=== PATIENT | male | born 1945 | race Two or more races ===

== ENCOUNTER 2021-02-28 16:09 | Emergency (ER) | payer OTHER ==
[~2021-02-28] VITALS: Ht 172.7 cm; Wt 72.6 kg
[2021-02-28] MEDS ORDERED: TDAP DIPH,PERTUSS,TET VAC/PF 0.5 ML DISP.SYRIN IM ONE ×2 (16:30→16:59)
--- NOTE | 2021-02-28 16:30 | NUR ---
PATIENT WAS MSE BY DR KEATING IN ROOM 03A.
[2021-02-28] MEDS ORDERED: MORPHINE SULFATE 2 MG/1 ML DISP.SYRIN ONE (16:59)
[2021-02-28] MEDS ORDERED: KETOROLAC TROMETHAMINE 30 MG INJ ONE (16:59)
[2021-02-28] MEDS ORDERED: KETOROLAC TROMETHAMINE 30 MG INJ IM ONE (17:00)
[2021-02-28] MEDS ORDERED: MORPHINE SULFATE 2 MG/1 ML DISP.SYRIN IM ONE (17:00)
[2021-02-28] MEDS ORDERED: HYDR-4209 PO (17:40)
[2021-02-28] MEDS ORDERED: IBUP-1955 PO (17:40)
--- NOTE | 2021-02-28 18:05 | NUR ---
Patient discharged to home in stable condition. Written and verbal after care instructions given. Patient and verbalizes understanding of instructions. Stressed follow up or return to ER for worsening s/s.
[2021-02-28 18:10] VITALS: BP 134/77
== END 2021-02-28 18:05 | disposition home or self-care (01) ==
LOC: ER 16:12
DX: S52.001A Unspecified fracture of upper end of right ulna, initial encounter for closed fracture (principal); S00.511A Abrasion of lip, initial encounter; W01.0XXA Fall on same level from slipping, tripping and stumbling without subsequent striking against object, initial encounter; Y93.01 Activity, walking, marching and hiking; Y92.481 Parking lot as the place of occurrence of the external cause
CPT/HCPCS: 29105; 73080 ×2; 96372 ×2; 99284; J1885; J2270; 90715; A4663